=== PATIENT | female | born 1990 | race Caucasian/White ===

== ENCOUNTER 2019-11-17 20:59 | Inpatient (IN) | payer OTHER ==
[2019-11-18] MEDS: LEVOFLOXACIN 500MG-D5W PMX 500 MG in DEXTROSE/WATER 1 100ML.BAG IVPB SCH (00:38)
[2019-11-18] MEDS: DEXTROSE 5%-0.45% NACL 1,000 ML IV SCH ×3 (00:38→17:46)
[2019-11-18] MEDS: metroNIDAZOLE-NS PMX 500 MG in SALINE 1 100ML.BAG IVPB SCH ×4 (00:49→23:31)
[2019-11-18] MEDS: MORPHINE SULFATE 2 MG/ML SYRINGE IVP PRN ×4 (06:08→22:11)
[2019-11-18 08:12] LABS: Basophils % (A) 0 %; Eosinophils # (A) 0.1 k/uL (0-0.7); Eosinophils % (A) 1 %; HCT 38.4 % (34.0-46.0); HGB 12.2 gm/dL (11.4-16.0); Lymphocytes # (A) 0.4 k/uL (1.0-4.8); Lymphocytes % (A) 11 %; MCH 29.7 pg (25.0-35.0); MCHC 31.9 g/dL (31.0-37.0); MCV 93.3 fL (80.0-100.0); Mean Platelet Volume 8.5; Monocytes # (A) 0.3 k/uL (0-1.0); Monocytes % (A) 8 %; Neutrophils # (A) 3.1 k/uL (1.3-7.7); Neutrophils % (A) 78 %; Platelet Count 103 k/uL (150-450); RBC 4.12 m/uL (3.80-5.40); RDW 12.8 % (11.5-15.5)
[2019-11-18 08:31] LABS: African American GFR (CKD) >90 (>60 ml/min/1.73 sqM); Anion Gap 5 mmol/L; Blood Urea Nitrogen 6 mg/dL (7-17); C Reactive Protein 35.8 mg/L (<10.0); Calcium 8.6 mg/dL (8.4-10.2); Carbon Dioxide 23 mmol/L (22-30); Chloride 109 mmol/L (98-107); Glucose 95 mg/dL (74-99); Non-African American GFR(CKD) >90 (>60 ml/min/1.73 sqM); Potassium 3.8 mmol/L (3.5-5.1); Sodium 137 mmol/L (137-145)
--- NOTE | 2019-11-18 16:00 | P.HPIM ---
History of Present Illness H&P Date: 11/18/19 Chief Complaint: Abdominal pain 39-year-old female patient presented to [facility] with complaint of possible panic attack and abdominal pain going on for past few days; patient reported that she had some argument with her [id number] after that she felt she couldn't move so she called EMS ; according to EMS report patient was on the floor clenching her arms, crying and hyperventilating . Monitor showed patient to be in sinus tachycardia she was started on oxygen and was brought to the hospital; vitamin E in ED patient reported abdominal pain and nausea going on for a few days workup done in ED including CT of the abdomen was significant for pancolitis; patient is started on IV fluids and antibiotics and is transferred to a facility for GI evaluation Review of Systems REVIEW OF SYSTEMS: CONSTITUTIONAL: No fever, no malaise, no fatigue. HEENT: No recent visual problems or hearing problems. Denied any sore throat. CARDIOVASCULAR: No chest pain, orthopnea, PND, no palpitations, no syncope. PULMONARY: No shortness of breath, no cough, no hemoptysis. GASTROINTESTINAL: No diarrhea, no nausea, no vomiting, no abdominal pain. NEUROLOGICAL: No headaches, no weakness, no numbness. HEMATOLOGICAL: Denies any bleeding or petechiae. GENITOURINARY: Denies any burning micturition, frequency, or urgency. MUSCULOSKELETAL/RHEUMATOLOGICAL: Denies any joint pain, swelling, or any muscle pain. ENDOCRINE: Denies any polyuria or polydipsia. The rest of the 14-point review of systems is negative. Past Medical History History of Any Multi-Drug Resistant Organisms: None Reported Past Surgical History: Section Past Psychological History: Depression Smoking Status: Never smoker Medications and Allergies Home Medications Medication Instructions Recorded Confirmed Type No Known Home Medications 11/18/19 11/18/19 History Allergies Allergy/AdvReac Type Severity Reaction Status Date / Time Sulfa (Sulfonamide Allergy Rash/Hives Verified 11/18/19 08:25 Antibiotics) Physical Exam Vitals: Vital Signs Temp Pulse Resp BP Pulse Ox 11/18/19 08:00 68 16 11/18/19 07:00 98.3 F 68 16 100/66 96 11/18/19 01:51 97.9 F 72 18 100/65 97 Intake and Output 11/17/19 11/18/19 11/18/19 22:59 06:59 14:59 Intake Total 0 Balance 0 Intake: Oral 0 Other: Weight 84 kg General appearance: Present: average body habitus, cooperative, no acute distress Eyes: Present: anicteric sclerae, EOMI, PERRLA, normal appearance ENT: Present: hearing grossly normal, normal oropharynx Neck: Present: normal ROM. Absent: lymphadenopathy, rigidity, thyromegaly Carotids: negative: bruit present Thyroid: bilateral: normal size, negative: enlarged, nodule Respiratory: bilateral: CTA, negative: rales, rhonchi, wheezing Cardiovascular; regular; Heart sounds: normal: S1, S2 Gastrointestinal; normal bowel sounds, soft. Absent: distended, organomegaly, tenderness Genitourinary Comment(s): deferred Integumentary: Present: normal turgor. Absent: jaundiced, rash, ulcer Neurologic: Present: CNII-XII intact. Absent: focal deficits Musculoskeletal: Present: gait normal, strength equal bilaterally Psychiatric: Present: A&O x's 3, appropriate affect, intact judgment & insight Results CBC & Chem 7: 11/18/19 07:27 11/18/19 07:27 Labs: Abnormal Lab Results - Last 24 Hours (Table) 11/18/19 11/18/19 Range/Units 07:27 07:27 Plt Count 103 L (150-450) k/uL Lymphocytes # 0.4 L (1.0-4.8) k/uL Chloride 109 H (98-107) mmol/L BUN 6 L (7-17) mg/dL C-Reactive Protein 35.8 H (<10.0) mg/L Thrombosis Risk Factor Assmnt - Choose All That Apply Each Factor Represents 1 point: Obesity (BMI >25) Each Risk Factor Represents 3 Points: Family history of DVT/PE Thrombosis Risk Factor Assessment Total Risk Factor Score: 4 Thrombosis Risk Factor Assessment Level: Moderate Risk Assessment and Plan Assessment: 1. Pancolitis Patient does have a family history of Crohn's disease in her brother; we will continue with IV Levaquin and Flagyl and await further GI recommendations - Keep patient nothing by mouth and continue with IV fluids - I we will monitor electrolytes closely 2. Anxiety/panic attack; we will continue with Ativan 0.5 mg IV every 6 hours when necessary 3. Lymphocytopenia; monitor CBC DVT prophylaxis; SCDs CODE STATUS; full code
[2019-11-18] MEDS: ONDANSETRON 4 MG/2 ML VIAL IVP PRN (18:32)
--- NOTE | 2019-11-18 23:42 | CONS ---
CONSULTATION DATE OF DICTATION: 11/18/2019 REASON FOR CONSULTATION: Abdominal pain, nausea, vomiting, diarrhea. HISTORY OF PRESENT ILLNESS: The patient is a 29-year-old pleasant white female was transferred from [facility] when she presented with abdominal pain associated with nausea, vomiting, diarrhea for the last 3 days duration. The patient states that she started having diffuse abdominal pain associated with several episodes of nausea, vomiting, and diarrhea with bowel movements anywhere from 1 to 2 a day but very loose and watery in consistency. The pain continued to progressively get worse and hence he came into the emergency room to [facility]. According to the patient, she had a CT of the abdomen and pelvis done and it showed evidence of thickening of the colon consistent with acute colitis and she was subsequently transferred to [facility] for further evaluation. She was started on empiric antibiotics with Flagyl and Levaquin. This morning, she did not have any nausea, vomiting, but she has persistent abdominal pain. She had one loose watery bowel movement this morning. She had a low-grade fever at 99.3 at home. She denies any rectal bleeding. Never had these symptoms in the past. Nobody in the family is sick. No recent travel history. No recent antibiotic use. PAST MEDICAL HISTORY: Mild anxiety. PAST SURGICAL HISTORY: Unremarkable. MEDICATIONS AT HOME: None. ALLERGIES: SULFA. SOCIAL HISTORY: No smoking or alcohol use. FAMILY HISTORY: Brother has Crohn disease. REVIEW OF SYSTEMS: CARDIOPULMONARY: No chest pain or shortness of breath. GENITOURINARY: No dysuria or hematuria. MUSCULOSKELETAL: Unremarkable. SKIN: Unremarkable. ENDOCRINE: Unremarkable. PSYCHIATRIC: Unremarkable. NEUROLOGY: Unremarkable. ENT/VISION: Unremarkable. CONSTITUTIONAL: No recent weight loss. No fever, chills, night sweats. PHYSICAL EXAMINATION: She appears comfortable. No apparent distress. Vital signs are stable. Blood pressure is 105/69, pulse 67, temperature 98.8. HEENT EXAMINATION: Unremarkable. Conjunctivae pink. Sclerae anicteric. Oral cavity, no lesions. NECK: No JVD or lymph node enlargement. CHEST: Clear to auscultation. HEART: Regular rate and rhythm ABDOMEN: Mild diffuse tenderness all over the abdomen. No rebound or rigidity. EXTREMITIES: No pedal edema SKIN: No rashes. NEURO: She is alert and oriented x3. No focal deficits. LABS: Labs from today: WBC 4, hemoglobin 12, platelets 103. Basic metabolic panel is within normal limits. CRP is 35.8. IMPRESSION: 1. Acute onset of diffuse abdominal pain associated with nausea, vomiting, diarrhea for the last 3 days duration. Most likely dealing with a viral gastroenteritis versus infectious colitis. The patient stated that she did have a CT of the abdomen and pelvis done at [facility], which showed thickening of the colon consistent with colitis. No records available at the time of this dictation. Patient on empiric antibiotics with Levaquin and Flagyl and she is feeling better. 2. Family history of Crohn disease. 3. History of anxiety. RECOMMENDATIONS: 1. Continue with empiric antibiotics. 2. Clear liquid diet. 3. Obtain stool studies. 4. We will follow with you closely. No plans for any endoscopic intervention. Thank you for this consultation. COURTNEY / JAY: [id number] /
[2019-11-19] MEDS: LEVOFLOXACIN 500MG-D5W PMX 500 MG in DEXTROSE/WATER 1 100ML.BAG IVPB SCH ×2 (00:30→23:17)
[2019-11-19] MEDS: DEXTROSE 5%-0.45% NACL 1,000 ML IV SCH ×2 (00:30→08:18)
[2019-11-19] MEDS: ONDANSETRON 4 MG/2 ML VIAL IVP PRN ×2 (00:31→06:06)
[2019-11-19] MEDS: MORPHINE SULFATE 2 MG/ML SYRINGE IVP PRN ×3 (02:38→09:28)
[2019-11-19] MEDS: metroNIDAZOLE-NS PMX 500 MG in SALINE 1 100ML.BAG IVPB SCH ×2 (08:08→15:48)
[2019-11-19] MEDS: PANTOPRAZOLE 40 MG/10 ML VIAL IVP SCH ×2 (10:31→21:05)
[2019-11-19] MEDS: PROCHLORPERAZINE 5 MG TAB PO PRN ×2 (10:38→23:17)
[2019-11-19] MEDS ORDERED: FAMOTIDINE 20 MG TAB PO SCH (11:15)
[2019-11-19] MEDS: KETOROLAC 30 MG/ML 1 ML VIAL IVP PRN ×2 (11:19→21:04)
[2019-11-19] MEDS: SODIUM CHLORIDE 0.9% 1,000 ML IV SCH ×2 (11:34→23:16)
[2019-11-19] MEDS ORDERED: HYDROcodone/APAP 5-325MG 1 EACH TAB PO PRN (12:03)
--- NOTE | 2019-11-19 12:49 | P.PN ---
Subjective 29-year-old female admitted for pancolitis is on levofloxacin and metronidazole at this time. Patient is still complaining of abdominal pain but the abdomen is soft still having some diarrhea C. diff is negative. Patient appears to be quite a bit depressed although denies any depression patient appears to be fatigued mostly from depression patient had history of suicide attempt in the past. Constitutional: Denied any fatigue denied any fever. Cardio vascular: denied any chest pain, palpitations Gastrointestinal as mentioned in HPI Pulmonary: Denied any shortness of breath cough Neurologic denied any new focal deficits All inpatient medications were reviewed and appropriate changes in these medications as dictated in the interval history and assessment and plan. Objective - Vital Signs Vital signs: Vital Signs Temp 97.8 F 11/19/19 11:23 Pulse 60 11/19/19 11:23 Resp 16 11/19/19 11:23 BP 111/74 11/19/19 11:23 Pulse Ox 97 11/19/19 11:23 Intake & Output 11/18/19 11/19/19 11/19/19 18:59 06:59 18:59 Intake Total 330 Output Total 600 Balance 330 -600 Intake: Oral 330 Output: Urine 600 Other: # Voids 2 1 - Exam PHYSICAL EXAMINATION: GENERAL: The patient is alert and oriented x3, not in any acute distress. Obese HEENT: Pupils are round and equally reacting to light. EOMI. No scleral icterus. No conjunctival pallor. Normocephalic, atraumatic. No pharyngeal erythema. No thyromegaly. CARDIOVASCULAR: S1 and S2 present. No murmurs, rubs, or gallops. PULMONARY: Chest is clear to auscultation, no wheezing or crackles. ABDOMEN: Soft, nontender, nondistended, normoactive bowel sounds. No palpable organomegaly. MUSCULOSKELETAL: No joint swelling or deformity. EXTREMITIES: No cyanosis, clubbing, or pedal edema. NEUROLOGICAL: Gross neurological examination did not reveal any focal deficits. SKIN: No rashes. - Labs CBC & Chem 7: 11/18/19 07:27 11/18/19 07:27 Labs: Abnormal Lab Results - Last 24 Hours (Table) 11/18/19 Range/Units 14:30 Stool Lactoferrin POSITIVE H (NEGATIVE) Microbiology - Last 24 Hours (Table) 11/18/19 14:30 Stool Culture - Preliminary Stool Assessment and Plan Plan: -Possible diverticulitis is being treated for infectious causes continue current present antibiotics patient was started on Toradol for pain patient was complaining of itching mostly from morphine -Major depression with anxiety and panic attacks: Psychiatric was consulted for this -Obesity. -DVT prophylaxis with subcutaneous heparin and GI prophylaxis with Protonix
[2019-11-19] MEDS: ONDANSETRON 4 MG/2 ML VIAL IVP SCH ×2 (12:50→18:21)
--- NOTE | 2019-11-19 13:34 | P.CN ---
Psychiatric Consult - . Consult date: 11/19/19 Consult:: IDENTIFYING DATA: She is a 29-year-old female transferred from [facility] with complaints of a possible panic attack and persistent abdominal pain. Her evaluation at [facility] included a computed tomography scan which was significant for pancolitis. She was transferred to this facility for further GI evaluation. The hospitalist submitted a psychiatric consult because she has a history of depression and a suicide attempt. HISTORY OF PRESENT ILLNESS: I reviewed the medical record and interviewed the patient. She complained of multiple stressors. The most significant of which is her pending divorce with her of 10 years. On 2018 he announced that she wanted a divorce but he did not move out of the house until June 2019. She thought that she had moved into a motel but recently learned that he is living with his "new girlfriend". The divorce has become more conflictual with regard to child custody arrangements. She agreed to a joint custody arrangement but complained that her will not abide by a scheduled custody arrangement. She also describes ongoing conflict with his family. Prior to her admission at [facility] her [id number] came to her house unannounced and asked her children if they want to "work with him for the day." He became angry when she told him that the children cannot spend the day with him. They argued and he refused to leave her house until she threatened to call the police. She feels "stressed" and anxious but denied feeling persistently depressed or having thoughts of or suicide. She admitted to a 30 pound weight loss over the last 5 months but denied other symptoms of depression such as energy, anhedonia, guilt or impairment in concentration. She described one episode suggestive of panic attack but denied experiencing recurrent episodes of increased anxiety consistent with panic attack. She denied obsessions or compulsions. She denied experiencing elevated mood or sustained irritability consistent with elan or hypomania. She denied experiencing psychotic symptoms such as hallucinations, delusions, paranoia or thought disturbances. She described a social pattern of alcohol use and denied use of drugs to get high, help her sleep or change her mood. PAST PSYCHIATRIC HISTORY: She attempted suicide 2 years ago when she discovered that her was having an affair. She cut her wrist and was hospitalized 1 week and a "mental hospital" in [facility]. She has met with and individual therapists since the hospital admission. She last met [id number] with therapist, Krupa, in August 2019 but has maintained video contact with her therapist. She stopped antidepressant 5 months ago was very resistant to considering restarting an antidepressant. PAST MEDICAL HISTORY: She denied a history of major medical illnesses. ALLERGIES: Sulfa. SUBSTANCE USE HISTORY: She denied a history of substance use problems. She denied that she had participated in a substance abuse treatment program.. FAMILY PSYCHIATRIC/SUBSTANCE USE HISTORY: She described a family history of depression, suicide attempts or completed suicides.. SOCIAL HISTORY: She was born and raised in an intact family. She graduated from high school. She did note her for 12 years and they've for 10 years. They have 4 children range in age from 5-10. She is living in the family home. Her mother 2 years ago. She identified her father as her primary support. 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 She works between 40-8 hours a week with 2 jobs. MENTAL STATUS EXAM: She presented as a casually groomed 29-year-old female who is laying comfortably in bed. She made eye contact and attended the interview. She had no distinguishing features or prominent physical abnormalities. She had a blunted facial expression. She was alert and oriented to person, place and time. She had psychomotor retardation but no abnormal inv oluntary movements. Her speech was spontaneous with decreased rate, rhythm and volume. Affect was depressed but appropriate. She denied suicidal ideation or wishes. She denied homicidal ideation. She denied feeling hopeless, helpless or worthless. She ruminated about the above stresses but did not express ideas reference, paranoid ideation, magical ideation or delusions. Her thinking was abstract and associations were coherent, logical and goal directed. She denied hallucinations and did not appear to be responding to internal stimuli.. IMPRESSIONS: She is a 29-year-old female admitted to the [facility] for evaluation of a colitis. She has a history of a depression and suicide attempt 2 years ago when she discovered that her is having an affair. He announced his intention to divorce in April 2019 and moved in with a new girlfriend in June 2019. She has custody of their 4 children. She described multiple stressors including the separation, divorce proceeding, dispute over child custody arrangements and conflict with his extended family. She feels anxious and appears of had a panic attack but no recurrent episodes suggestive of panic disorder. She has some symptoms of depression but does not appear to meet full criteria for major depressive disorder. She does not require inpatient psychiatric treatment this time. She would benefit from continued outpatient treatment and has an upcoming scheduled appointment with her individual therapist. We discussed antidepressant medication but she declined at this time. Diagnosis: Adjustment disorder with disturbance of mood, rule out major depressive disorder in partial remission, marital problems, conflict with extended family PLAN: There is no indication for transfer to psychiatric illnesses time. She Continue with individual therapy and is sure that she has a follow-up appointment prior to discharge. Over depressive symptoms or anxiety symptoms were to worsen and she would benefit from anti-'s depressant. Thank you for this consult. Psychiatry will sign off the case. 11/19/19 13:16
[2019-11-19] MEDS: DICYCLOMINE 10 MG CAP PO SCH (21:05)
[2019-11-20] MEDS: metroNIDAZOLE-NS PMX 500 MG in SALINE 1 100ML.BAG IVPB SCH ×2 (00:35→07:57)
[2019-11-20] MEDS: ONDANSETRON 4 MG/2 ML VIAL IVP SCH ×3 (00:36→12:16)
[2019-11-20 06:13] LABS: HCT 35.4 % (34.0-46.0); HGB 11.4 gm/dL (11.4-16.0); MCHC 32.2 g/dL (31.0-37.0); MCV 93.2 fL (80.0-100.0); Mean Platelet Volume 8.8; Platelet Count 112 k/uL (150-450); RDW 12.8 % (11.5-15.5); WBC 2.9 k/uL (3.8-10.6)
[2019-11-20] MEDS: KETOROLAC 30 MG/ML 1 ML VIAL IVP PRN ×2 (06:23→12:20)
[2019-11-20] MEDS: SODIUM CHLORIDE 0.9% 1,000 ML IV SCH ×2 (06:24→07:59)
[2019-11-20 06:29] LABS: ALT 10 U/L (4-34); AST 14 U/L (14-36); African American GFR (CKD) >90 (>60 ml/min/1.73 sqM); Albumin 2.8 g/dL (3.5-5.0); Alkaline Phosphatase 42 U/L (38-126); Anion Gap 4 mmol/L; Blood Urea Nitrogen 3 mg/dL (7-17); C Reactive Protein 14.7 mg/L (<10.0); Calcium 8.5 mg/dL (8.4-10.2); Carbon Dioxide 24 mmol/L (22-30); Chloride 108 mmol/L (98-107); Glucose 88 mg/dL (74-99); Non-African American GFR(CKD) >90 (>60 ml/min/1.73 sqM); Sodium 136 mmol/L (137-145); Total Bilirubin 0.4 mg/dL (0.2-1.3); Total Protein 5.5 g/dL (6.3-8.2)
[2019-11-20] MEDS: DICYCLOMINE 10 MG CAP PO SCH (08:11)
[2019-11-20] MEDS: PANTOPRAZOLE 40 MG/10 ML VIAL IVP SCH (08:11)
[2019-11-20] MEDS ORDERED: ENOXAPARIN 40 MG/0.4 ML SYRINGE SQ SCH (09:00)
--- NOTE | 2019-11-20 10:44 | P.PN ---
Subjective Progress Note Date: 11/26/19 Principal diagnosis: Abdominal pain, nausea and vomiting, diarrhea, colitis Patient is seen lying in bed, she is tolerated diet. Still reporting some abdominal pain. No further vomiting. Objective - Vital Signs Vital signs: Vital Signs Temp 98.0 F 11/19/19 15:50 Pulse 60 11/19/19 11:23 Resp 16 11/19/19 15:50 BP 106/57 11/19/19 15:50 Pulse Ox 96 11/19/19 15:50 Intake & Output 11/18/19 11/19/19 11/19/19 18:59 06:59 18:59 Intake Total 330 30 Output Total 600 Balance 330 -570 Intake: Oral 330 30 Output: Urine 600 Other: # Voids 2 1 - Exam On physical examination, patient appears comfortable in no apparent distress. HEAD: Normocephalic, atraumatic. EYES: No scleral icterus. No conjunctival injection. MOUTH: No lesions, tongue midline. NECK: Trachea midline, no gross abnormalities. ABDOMEN: Soft, obese, tender to palpation. Bowel sounds are positive. No organomegaly. No guarding or rigidity. EXTREMITIES: No pedal edema. SKIN: No rashes, no jaundice. NEUROLOGIC: Alert and oriented x3. No focal deficits. - Labs CBC & Chem 7: 11/20/19 05:53 11/20/19 05:53 Labs: Abnormal Lab Results - Last 24 Hours (Table) 11/18/19 Range/Units 14:30 Stool Lactoferrin POSITIVE H (NEGATIVE) Microbiology - Last 24 Hours (Table) 11/18/19 14:30 Stool Culture - Preliminary Stool Assessment and Plan (1) Abdominal pain Narrative/Plan: 29-year-old presenting with acute onset of diffuse abdominal pain with associated nausea, vomiting and diarrhea of 3 days duration. Suspicion is for viral gastroenteritis versus he scan findings at outside hospital showing diffuse thickening of the colon consistent with colitis. She does have a family history of Crohn's disease however reports any chronicity to her symptoms. Current Visit: Yes Status: Acute Code(s): R10.9 - UNSPECIFIED ABDOMINAL PAIN SNOMED Code(s): 71251653 (2) Pancolitis Current Visit: Yes Status: Acute Code(s): K51.00 - ULCERATIVE (CHRONIC) PANCOLITIS WITHOUT COMPLICATIONS SNOMED Code(s): 389217918 Plan: Supportive care Clear liquid diet, advance as tolerated Continue empiric therapy with antibiotics Dicyclomine added for abdominal pain Continue antiemetic therapy as needed Thank you for allowing us to participate in the care of the patient
[2019-11-20 13:41] VITALS: BP 109/70; PULSE 57; RESP 16; TEMP 98.5
--- NOTE | 2019-11-20 16:07 | P.DS ---
Providers Date of admission: 11/17/19 22:55 Expected date of discharge: 11/20/19 Attending physician: Christy Flores MD Consults: 11/17/19 23:54 Consult Physician Routine Consulting Provider: Tiffanie Bardales Consult Reason/Comments: Colitis Do you want consulting provider notified?: Yes, Notify in am Placement Type Exists?: Yes 11/19/19 12:04 Consult Physician Routine Consulting Provider: Bakari Ricks Consult Reason/Comments: hx suicide attempt depression Do you want consulting provider notified?: Already Contacted Primary care physician: Lucila Tran [facility] Course: Final diagnosis -Possible pancolitis versus viral gastroenteritis -Major depression with anxiety and panic attacks -Obesity -DVT prophylaxis -GI prophylaxis Discharge disposition Patient is being discharged in a stable condition with guarded prognosis to home. Patient will follow-up with [facility] in the outpatient setting upon discharge. Patient will continue on a short course of oral antibiotics in the form of Flagyl and Levaquin to complete the course. Patient was also provided a prescription for Bentyl. Total time taken is 35 minutes. History of present illness This is a 29-year-old female who was recently admitted with pancolitis along with abdominal pain with nausea, vomiting, diarrhea and was being closely monitored. She was seen and evaluated by GI recommending no surgical interventions at this time and to continue with empiric antibiotics and was initiated on levofloxacin along with Flagyl. Patient will continue on oral course of Levaquin along with Flagyl for the next 3 days to complete the course. Patient was also provided a prescription for Bentyl for the abdominal discomfort along with tramadol as needed for pain. Patient will follow-up with GI in the outpatient setting as needed. Patient was also seen and evaluated by psychiatry she has a history of depression although denies any thoughts of suicide or wanting to hurt herself or others at this time. Patient will need to follow-up with primary care along with community mental health or psychiatrist in the outpatient setting. Patient continues to have some mild abdominal discomfort although slightly improved and is having intermittent periods of nausea with no reports of vomiting and diarrhea has subsided. Patient was noted to have possible colitis at the previous hospital prior to transfer here in [facility]. Patient will be continued on a clear liquid and advance slowly as tolerated to full liquids. Patient instructed to slowly advance diet in the outpatient setting. Currently no reports of chest pain, shortness of breath, or palpitations. Patient is afebrile. No reports of vomiting and patient is tolerating diet. Patient is intermittently having periods of nausea although tolerating diet. Patient to continue Zofran as needed and provided a prescription for Bentyl. Patient will be discharged today. On exam vital signs are stable. Temp is 98.5F, pulse is 57, respirations are 16, blood pressure is 109/70, oxygen saturation is 96% on room air. Cardio S1, S2 are present. Respiratory system shows clear to auscultation. Abdomen is soft and nontender. Nervous system shows no focal deficits. Please refer to medication reconciliation sheet for a list of medications. disposition Plan - Discharge Summary Discharge Rx Participant: Yes New Discharge Prescriptions: New Dicyclomine [Bentyl] 10 mg PO TID #30 cap metroNIDAZOLE [Flagyl] 500 mg PO TID 3 Days #9 tab Levofloxacin [Levaquin] 500 mg PO DAILY 3 Days #3 tab Pantoprazole Sodium [Protonix] 40 mg PO DAILY #30 tablet. Ondansetron Odt [Zofran Odt] 4 mg PO Q8HR PRN #12 tab PRN Reason: Nausea traMADol HCl [Ultram] 50 mg PO Q8HR PRN 3 Days #12 tab PRN Reason: Pain Discharge Medication List Dicyclomine [Bentyl] 10 mg PO TID #30 cap 11/20/19 [Rx] Levofloxacin [Levaquin] 500 mg PO DAILY 3 Days #3 tab 11/20/19 [Rx] Ondansetron Odt [Zofran Odt] 4 mg PO Q8HR PRN #12 tab 11/20/19 [Rx] Pantoprazole Sodium [Protonix] 40 mg PO DAILY #30 tablet. 11/20/19 [Rx] metroNIDAZOLE [Flagyl] 500 mg PO TID 3 Days #9 tab 11/20/19 [Rx] traMADol HCl [Ultram] 50 mg PO Q8HR PRN 3 Days #12 tab 11/20/19 [Rx] Follow up Appointment(s)/Referral(s): Lucila Tran PAC [Primary Care Provider] - 11/22/19 1:00 pm Corey Fan MD [STAFF PHYSICIAN] - As Needed Patient Instructions/Handouts: Metronidazole (By mouth), Levofloxacin (By mouth), Colitis (ED), Full Liquid Diet (DC) Activity/Diet/Wound Care/Special Instructions: Activity Limited until follow-up Continue current diet of clear liquids and advance slowly to full liquids as tolerated Follow-up with primary care provider upon discharge Continue with antibiotics until finished Follow-up with Gastroenterology as needed Follow-up with psychiatry or community mental health in the outpatient setting ( keep scheduled appt) Last received levaquin 1130pm 11/19/19 Last received flagyl at 0800 11/20/19 last received zofran at 1215 11/20/19 Last received bentyl at 0800 11/20/19 Last received protonix at 0800 11/20/[address] with worsening of the symptoms that brought you here or any concerns. good hand washing for all in the house. Discharge Disposition: HOME SELF-CARE
--- NOTE | 2019-11-20 21:39 | P.PN ---
Subjective Progress Note Date: 11/20/19 Principal diagnosis: Abdominal pain, nausea and vomiting, diarrhea, colitis Patient is seen lying in bed, still reporting some abdominal pain. No further vomiting and she has tolerated a liquid diet. Objective - Vital Signs Vital signs: Vital Signs Temp 97.9 F 11/20/19 07:57 Pulse 53 L 11/20/19 08:00 Resp 18 11/20/19 07:57 BP 112/73 11/20/19 07:57 Pulse Ox 98 11/20/19 07:57 Intake & Output 11/19/19 11/20/19 11/20/19 18:59 06:59 18:59 Intake Total 330 1400 Output Total 1025 Balance -695 1400 Intake: Oral 330 1400 Output: Urine 1025 Other: # Voids 1 - Exam On physical examination, patient appears comfortable in no apparent distress. HEAD: Normocephalic, atraumatic. EYES: No scleral icterus. No conjunctival injection. MOUTH: No lesions, tongue midline. NECK: Trachea midline, no gross abnormalities. ABDOMEN: Soft, obese, tender to palpation. Bowel sounds are positive. No organomegaly. No guarding or rigidity. EXTREMITIES: No pedal edema. SKIN: No rashes, no jaundice. NEUROLOGIC: Alert and oriented x3. No focal deficits. - Labs CBC & Chem 7: 11/20/19 05:53 11/20/19 05:53 Labs: Abnormal Lab Results - Last 24 Hours (Table) 11/20/19 11/20/19 Range/Units 05:53 05:53 WBC 2.9 L (3.8-10.6) k/uL Plt Count 112 L (150-450) k/uL Sodium 136 L (137-145) mmol/L Chloride 108 H (98-107) mmol/L BUN 3 L (7-17) mg/dL C-Reactive Protein 14.7 H (<10.0) mg/L Total Protein 5.5 L (6.3-8.2) g/dL Albumin 2.8 L (3.5-5.0) g/dL Assessment and Plan (1) Abdominal pain Narrative/Plan: 29-year-old presenting with acute onset of diffuse abdominal pain with associated nausea, vomiting and diarrhea of 3 days duration. Suspicion is for viral gastroenteritis versus he scan findings at outside hospital showing diffuse thickening of the colon consistent with colitis. She does have a family history of Crohn's disease however reports any chronicity to her symptoms. Status: Acute Code(s): R10.9 - UNSPECIFIED ABDOMINAL PAIN SNOMED Code(s): 44435533 (2) Pancolitis Status: Acute Code(s): K51.00 - ULCERATIVE (CHRONIC) PANCOLITIS WITHOUT COMPLICATIONS SNOMED Code(s): 596298926 Plan: Supportive care Clear liquid diet, advance as tolerated Continue empiric therapy with antibiotics Dicyclomine added for abdominal pain Continue antiemetic therapy as needed Thank you for allowing us to participate in the care of the patient
== END 2019-11-20 14:29 | disposition home or self-care (01) | DRG 387 ==
LOC: 4SSUR 22:55 → 6PED 11-18 17:26
PROVIDERS: ADMIT Internal Medicine; ATTEND Internal Medicine
DX: K51.00 Ulcerative (chronic) pancolitis without complications (principal); A08.4 Viral intestinal infection, unspecified; F41.0 Panic disorder [episodic paroxysmal anxiety]; D72.810 Lymphocytopenia; F43.23 Adjustment disorder with mixed anxiety and depressed mood; E66.9 Obesity, unspecified; F32.9 Major depressive disorder, single episode, unspecified; Z98.891 History of uterine scar from previous surgery; Z88.2 Allergy status to sulfonamides; Z11.59 Encounter for screening for other viral diseases; Z83.79 Family history of other diseases of the digestive system; Z68.30 Body mass index [BMI] 30.0-30.9, adult; Z91.5 Personal history of self-harm
CPT/HCPCS: 80048; 80053; 82272; 83630; 84145; 85025; 85027; 86140; 87045; 87046; 87324

== ENCOUNTER 2022-03-15 08:21 | Day surgery (SDC) | payer OTHER ==
[2022-03-12 10:28] VITALS: BMI 35.6
--- NOTE | 2022-03-15 07:36 | P.GSHP ---
History of Present Illness H&P Date: 03/15/22 CHIEF COMPLAINT: GERD HISTORY OF PRESENT ILLNESS: The patient is a 32-year-old female who presents reports gastroesophageal reflux disease. Upper endoscopy was offered for further evaluation and management. PAST MEDICAL HISTORY: Please see list. PAST SURGICAL HISTORY: Please see list. MEDICATIONS: Please see list. ALLERGIES: Please see list. SOCIAL HISTORY: No illicit drug use FAMILY HISTORY: No reports of Crohn disease or ulcerative colitis. REVIEW OF ORGAN SYSTEMS: CONSTITUTIONAL: No reports of fevers or chills. GI: Denies any blood in stools or constipation. PHYSICAL EXAM: VITAL SIGNS: Stable GENERAL: Well-developed and pleasant in no acute distress. HEENT: No scleral icterus. Extraocular movements grossly intact. Moist buccal mucosa. NECK: Supple without lymphadenopathy. CHEST: Unlabored respirations. Equal bilateral excursions. CARDIOVASCULAR: Regular rate and rhythm. Distal 2+ pulses. ABDOMEN: Soft, nondistended. MUSCULOSKELETAL: No clubbing, cyanosis, or edema. ASSESSMENT: 1. Gastroesophageal reflux disease PLAN: 1. Recommend proceeding with an upper endoscopy Past Medical History Past Medical History: Syncope Additional Past Medical History / Comment(s): POTS WITH SYNCOPE , colitis History of Any Multi-Drug Resistant Organisms: None Reported Past Surgical History: Section Additional Past Surgical History / Comment(s): D&C, EGD, COLONOSCOPY Past Anesthesia/Blood Transfusion Reactions: No Reported Reaction Smoking Status: Never smoker - Past Family History Mother Family Medical History: No Reported History Medications and Allergies Home Medications Medication Instructions Recorded Confirmed Type Cyanocobalamin (Vitamin B-12) 1,000 mcg PO DAILY 01/13/22 03/12/22 History [Vitamin B-12] Magnesium 665 mg PO DAILY 01/13/22 03/12/22 History Celecoxib [CeleBREX] 200 mg PO DAILY 03/12/22 03/12/22 History DULoxetine HCL [Cymbalta] 30 mg PO DAILY 03/12/22 03/12/22 History Famotidine [Pepcid] 40 mg PO DAILY 03/12/22 03/12/22 History Midodrine [ProAmatine] 5 mg PO DAILY 03/12/22 03/12/22 History methocarbamoL [Robaxin] 1,500 mg PO TID PRN 03/12/22 03/12/22 History Allergies Allergy/AdvReac Type Severity Reaction Status Date / Time Sulfa (Sulfonamide Allergy Rash/Hives Verified 03/11/22 14:17 Antibiotics)
[~2022-03-15 08:21] MED LIST: LACTATED RINGERS 1,000 ML IV SCH; LIDOCAINE 1% (10MG/ML) FOR IV START INTRADERMA PRN
[2022-03-15 09:01] VITALS: TEMP 98
[2022-03-15] MEDS ORDERED: LIDOCAINE 2% INJ 20 MG/ML (2 ML VIAL) ONE (09:08)
[2022-03-15] MEDS ORDERED: PROPOFOL 10 MG/ML 20 ML VIAL IV ONE (09:08)
--- NOTE | 2022-03-15 09:30 | P.PCN ---
Date of Procedure: 03/15/22 Operative Findings: PREOPERATIVE DIAGNOSIS: Gastroesophageal reflux disease. Morbid obesity. POSTOPERATIVE DIAGNOSIS: Gastroesophageal reflux disease. Morbid obesity. Gastritis. Diaphragmatic hiatal hernia OPERATION: Esophagogastroduodenoscopy with biopsies along antrum and duodenum SURGEON: Lois Camacho MD ANESTHESIA: MAC. INDICATIONS: The patient is a 32-year-old female who presents with reflux disease. Benefits and risks of the procedure were described. Informed consent was obtained. DESCRIPTION: The patient was brought into the endoscopy suite and laid in the left lateral decubitus position. An Olympus gastroscope was passed along the posterior oropharynx down to the distal esophagus where the squamocolumnar junction was encountered at 35 cm from the incisors. The stomach was entered and no bile reflux was found. Additional findings are listed below. Biopsies with cold forceps were obtained of the antrum. The first through third portion of the duodenum was examined. Retroflexion of the scope confirmed Hill grade 2 lower esophageal valve. The squamocolumnar junction demonstrated LA grade B erosive esophagitis. The stomach was desufflated. The patient tolerated the procedure well. FINDINGS: Squamocolumnar junction 35 cm from the incisors. Diaphragmatic hiatus at 36 cm. Hiatal hernia, 1 cm Hill grade 2 lower esophageal valve. LA grade B erosive esophagitis. Cold biopsies obtained of duodenal Chronic gastritis RECOMMENDATIONS: Upper endoscopy as needed. Plan - Discharge Summary Discharge Rx Participant: No New Discharge Prescriptions: Continue Cyanocobalamin (Vitamin B-12) [Vitamin B-12] 1,000 mcg PO DAILY Celecoxib [CeleBREX] 200 mg PO DAILY Famotidine [Pepcid] 40 mg PO DAILY Magnesium 665 mg PO DAILY Midodrine [ProAmatine] 5 mg PO DAILY methocarbamoL [Robaxin] 1,500 mg PO TID PRN PRN Reason: MUSCLE SPASM DULoxetine HCL [Cymbalta] 30 mg PO DAILY Discharge Medication List Cyanocobalamin (Vitamin B-12) [Vitamin B-12] 1,000 mcg PO DAILY 01/13/22 [History] Magnesium 665 mg PO DAILY 01/13/22 [History] Celecoxib [CeleBREX] 200 mg PO DAILY 03/12/22 [History] DULoxetine HCL [Cymbalta] 30 mg PO DAILY 03/12/22 [History] Famotidine [Pepcid] 40 mg PO DAILY 03/12/22 [History] Midodrine [ProAmatine] 5 mg PO DAILY 03/12/22 [History] methocarbamoL [Robaxin] 1,500 mg PO TID PRN 03/12/22 [History] Follow up Appointment(s)/Referral(s): [facility] [NON-STAFF] - 03/31/22 Patient Instructions/Handouts: Hiatal Hernia (DC) Discharge Disposition: HOME SELF-CARE
[2022-03-15 09:49] VITALS: BP 120/80; PULSE 61; RESP 20
== END 2022-03-15 09:58 | disposition home or self-care (01) ==
LOC: ORWHC2ENDO 08:21
PROVIDERS: ATTEND Surgery Plastic and Reconstructive Surgery
DX: K29.50 Unspecified chronic gastritis without bleeding (principal); K44.9 Diaphragmatic hernia without obstruction or gangrene; K21.00 Gastro-esophageal reflux disease with esophagitis, without bleeding; E66.01 Morbid (severe) obesity due to excess calories; R55 Syncope and collapse; K52.9 Noninfective gastroenteritis and colitis, unspecified; Z98.891 History of uterine scar from previous surgery; Z79.899 Other long term (current) drug therapy; Z88.1 Allergy status to other antibiotic agents; Z68.41 Body mass index [BMI] 40.0-44.9, adult
CPT/HCPCS: 81025; 88305; 43239; J2704; J2001

== ENCOUNTER → 2022-05-12 | Outpatient (CLI) | payer OTHER ==
[2022-05-12 13:45] VITALS: BP 125/83; PULSE 79; TEMP 98.7; BMI 40.9
--- NOTE | 2022-05-12 14:58 | P.BASOAP ---
Subjective Progress Note Date: 05/12/22 She comes in with weight gain. MVI. Low vitamin A and D. Low protein intake. Large pannus. Needs pictures of tummy. Weight of 20 pounds. Grade 3 panniculus. She is taking skin creams prescribed for 1 year. Stable weight. She is trying to lose weight unsuccessfully. Highest weight is 260 pounds is her highest weight. Now down 25 pounds. She has cardiac clearance. Objective - Vital Signs Vital signs: Vital Signs Temp 98.7 F 05/12/22 13:42 Pulse 79 05/12/22 13:42 Resp BP 125/83 05/12/22 13:42 Pulse Ox FiO2 Intake & Output 05/11/22 05/12/22 05/12/22 18:59 06:59 18:59 Weight 106.594 kg Assessment/Plan Plan: Date: 05/12/22 Initial Weight: Initial BMI: Current Weight: 106.594 kg Current BMI: 40.9 Type of Surgery: Total Volume in Band: Previous Volume: Volume Removed: Volume Added: Band Size:
[2022-05-12 16:24] LABS: INR 0.9 (<1.2); Partial Thromboplastin Time 24.1 sec (22.0-30.0); Prothrombin Time 10.1 sec (9.0-12.0)
[2022-05-13 00:15] LABS: Chol/HDL Ratio 4.11 Ratio; LDL Cholesterol,Calculated 142.3 mg/dL (0.0-131.0)
[2022-05-13 00:43] LABS: % Iron Saturation 26.92 (12.00-45.00); ALT 31 U/L (8-44); AST 19 U/L (13-35); African American GFR (CKD) 132.4 (60.0-200.0); Albumin 4.1 g/dL (3.8-4.9); Albumin/Globulin Ratio 1.51 (1.60-3.17); Alkaline Phosphatase 65 U/L (41-126); BUN/Creat Ratio 14.96 Ratio (12.00-20.00); Blood Urea Nitrogen 10.5 mg/dL (9.0-27.0); Calcium 9.3 mg/dL (8.7-10.3); Carbon Dioxide 24.1 mmol/L (20.0-27.5); Chloride 104 mmol/L (96-109); Ferritin 21.2 ng/mL (10.0-291.0); Globulin 2.7 g/dL (1.6-3.3); Glucose 92 mg/dL (70-110); Iron 101 ug/dL (50-170); Non-African American GFR(CKD) 114.3 (60.0-200.0); Phosphorus 3.5 mg/dL (2.4-5.1); Potassium 4.1 mmol/L (3.5-5.5); Sodium 139 mmol/L (135-145); Total Iron Binding Capacity 375 ug/dL (228-460); Total Protein 6.8 g/dL (6.2-8.2)
[2022-05-13 00:50] LABS: HCT 42.5 % (37.2-46.3); HGB 13.4 g/dL (12.0-15.0); MCH 29.8 pg (27.0-32.0); MCHC 31.5 g/dL (32.0-37.0); MCV 94.4 fL (80.0-97.0); Mean Platelet Volume 11.9 fL (9.5-12.2); NRBC Per 100 WBC 0 /100 WBCS (0.0-0.0); Platelet Count 171 X 10*3/uL (140-440); RDW 12.9 % (11.5-14.5); WBC 6.13 X 10*3/uL (4.50-10.00)
== END ==
LOC: BARWHC3 13:15
PROVIDERS: ATTEND Surgery Plastic and Reconstructive Surgery
DX: E66.01 Morbid (severe) obesity due to excess calories (principal); Z68.41 Body mass index [BMI] 40.0-44.9, adult; Z88.2 Allergy status to sulfonamides; D50.9 Iron deficiency anemia, unspecified; K91.2 Postsurgical malabsorption, not elsewhere classified; E44.0 Moderate protein-calorie malnutrition; E45 Retarded development following protein-calorie malnutrition; E55.9 Vitamin D deficiency, unspecified; K74.1 Hepatic sclerosis; N19 Unspecified kidney failure; T56.894A Toxic effect of other metals, undetermined, initial encounter; K50.90 Crohn's disease, unspecified, without complications
CPT/HCPCS: 84255; 84134; 84425; 80061; 80053; 82607; 82728; 82525; 82746; 83540; 83550; 83735; 84100; 84443; 84590; 84630; 85027; 85610; 85730; 82306; 83970; 83036; G0463; 99211

== ENCOUNTER → 2022-10-13 | Outpatient (CLI) | payer OTHER ==
--- NOTE | 2022-10-13 10:31 | FL ---
EXAMINATION TYPE: FL barium swallow DATE OF EXAM: 10/13/2022 10:23 AM COMPARISON: None CLINICAL INDICATION:Female, 32 years old with history of R13.10 DYSPHAGIA; PH, TECHNIQUE: The procedure was explained and patient history elicited. All patient questions were ans wered prior to start of procedure. Multiple spot fluoroscopic images of the esophagus were obtained a fter the oral ingestion of effervescent crystals and liquid barium as the contrast agent. Fluoroscopic time: 21 seconds Fluoroscopic images: 156 Total DAP: 1925.72 FINDINGS: The esophagus demonstrates normal primary and secondary peristalsis. The esophageal mucosa is smooth without evidence of focal stricture, ulceration, or abnormal outpouching. No gastroesophageal reflu x disease was identified. No hiatal hernia demonstrated. IMPRESSION: Normal esophagram.
== END | disposition home or self-care (01) ==
LOC: RADUSWWP 09:50
PROVIDERS: ATTEND Surgery Plastic and Reconstructive Surgery
DX: R13.10 Dysphagia, unspecified (principal)
CPT/HCPCS: 74220